=== PATIENT | female | born 1970 | race Two or more races ===

== ENCOUNTER 2020-01-02 16:58 | Emergency (ER) | payer SELFPAY ==
[~2020-01-02] VITALS: Ht 149.9 cm; Wt 59.9 kg
[2020-01-02 17:16] VITALS: BP 134/86
--- NOTE | 2020-01-02 17:16 | NUR ---
Patient discharged to home in stable condition. Written and verbal after care instructions given. Patient verbalizes understanding of instruction.
== END 2020-01-02 17:17 | disposition home or self-care (01) ==
LOC: ER 16:58
DX: B37.3 Candidiasis of vulva and vagina (principal); L73.9 Follicular disorder, unspecified